=== PATIENT | female | born 1990 | race Hispanic/Latino ===

== ENCOUNTER 2023-11-10 08:27 | Inpatient (IN) | payer BC ==
[~2023-11-10] VITALS: Ht 157.5 cm; Wt 95.3 kg
[~2023-11-10 08:27] MED LIST: IBUP-2077 PO; PREN-226 PO
[2023-11-10 09:21] LABS: APPEARANCE,URINE CLEAR (CLEAR); BILIRUBIN,URINE NEGATIVE (NEGATIVE); COLOR,URINE COLORLESS (YELLOW); GLUCOSE, URINE (UA) NEGATIVE (NEGATIVE); KETONES,URINE NEGATIVE (NEGATIVE); LEUKOCYTE ESTERASE ,URINE NEGATIVE Leu/uL (NEGATIVE); NITRATE,URINE NEGATIVE (NEGATIVE); OCCULT BLOOD,URINE NEGATIVE (NEGATIVE); PROTEIN,URINE NEGATIVE (NEGATIVE); UROBILINOGEN,URINE 0.2 mg/dL (0.2-1.0)
[2023-11-10 09:21] LABS: HEMATOCRIT 38.3 % (36-48); MEAN CORPUSCULAR HEMOGLOBIN 26.4 pg (27.0-33.0); MEAN CORPUSCULAR HGB CONC 31.9 g/dL (32.0-36.0); MEAN CORPUSCULAR VOLUME 82.9 fL (79-99); RED BLOOD CELL COUNT(AUTO) 4.62 MIL/uL (4.00-5.50); RED CELL DISTRIBUTION WIDTH 15.9 % (11.0-15.5); WHITE BLOOD COUNT (AUTO) 9.6 K/uL (4.8-10.8)
[2023-11-10 09:22] LABS: ADD UA MICROSCOPIC NO
[2023-11-10] MEDS ORDERED: OXYTOCIN-LR 30 UNITS/500ML 500 ML IV SCH (09:30)
[2023-11-10 13:03] LABS: HIV 1&2 ANTIBODY Non-Reactive (Negative); HIV-1 p24 Antigen Non-Reactive (Negative)
[2023-11-10] MEDS: LACTATED RINGERS 1000ML 1,000 ML IV PRN (21:13)
[2023-11-10] MEDS: AMPICILLIN 2GM+NS 100ML 100 ML IV SCH (21:14)
[2023-11-11] MEDS: OXYTOCIN-LR 30 UNITS/500ML 500 ML IV SCH ×2 (01:34→11:06)
[2023-11-11] MEDS ORDERED: LACTATED RINGERS 500 ML 500 ML IV PRN (03:00)
[2023-11-11] MEDS ORDERED: ROPIVACAINE 0.2% 2MG/ML 100ML VIAL EP SCH (03:00)
[2023-11-11] MEDS ORDERED: EPHEDRINE SULFATE 50 MG/ML AMPULE IVP PRN (03:00)
[2023-11-11] MEDS ORDERED: NALOXONE HCL 0.4 MG/1 ML ML IV PRN (03:00)
[2023-11-11] MEDS: AMPICILLIN 1GM+NS 50ML 50 ML IV SCH (03:13)
[2023-11-11] MEDS ORDERED: PROMETHAZINE HCL 25 MG/ML 1ML AMPULE IM PRN (03:30)
[2023-11-11] MEDS ORDERED: MEPERIDINE-PF 50 MG/ML SYG IVP PRN (03:30)
[2023-11-11] MEDS ORDERED: LIDOCAINE HCL 1% 20 ML VIAL ONE (07:04)
[2023-11-11] MEDS ORDERED: ACETAMINOPHEN WITH CODEINE 1 TAB TAB PO PRN (10:00)
[2023-11-11] MEDS ORDERED: ACETAMINOPHEN 325 MG TAB PO PRN (10:00)
[2023-11-11 16:00] VITALS: BP 125/60; PULSE 101; RESP 18
[2023-11-11] MEDS: LANOLIN 30GM OINTMENT TP PRN (16:29)
[2023-11-11] MEDS: BENZOCAINE/LANOLIN/ALOE VERA 60 ML AEROSOL TP PRN (16:29)
[2023-11-11] MEDS: WITCH HAZEL 1 PAD TP PRN (16:29)
[2023-11-11] MEDS: IBUPROFEN 600 MG TABLET PO PRN (16:30)
[2023-11-11 20:16] VITALS: BP 124/78; PULSE 98; RESP 18
[2023-11-11] MEDS: DOCUSATE SODIUM 100 MG CAP PO SCH (21:25)
[2023-11-11 23:43] VITALS: BP 112/69; PULSE 86; RESP 18
[2023-11-12 04:00] VITALS: BP 106/57; PULSE 86; RESP 18
[2023-11-12 06:59] LABS: HEMATOCRIT 31.5 % (36-48); MEAN CORPUSCULAR HEMOGLOBIN 26.5 pg (27.0-33.0); MEAN CORPUSCULAR HGB CONC 31.7 g/dL (32.0-36.0); MEAN CORPUSCULAR VOLUME 83.6 fL (79-99); RED BLOOD CELL COUNT(AUTO) 3.77 MIL/uL (4.00-5.50); RED CELL DISTRIBUTION WIDTH 16.1 % (11.0-15.5); WHITE BLOOD COUNT (AUTO) 10.9 K/uL (4.8-10.8)
[2023-11-12 07:15] VITALS: BP 122/71; PULSE 85; RESP 18
[2023-11-12] MEDS: DIPH,PERTUSS(ACELL),TET VAC/PF 0.5 ML VIAL IM PRN (08:53)
[2023-11-12] MEDS ORDERED: CHOL100040 PO (09:42)
[2023-11-12] MEDS ORDERED: NPH,100V11 SQ (09:42)
[2023-11-12] MEDS ORDERED: INSREG SQ (09:42)
[2023-11-12] MEDS ORDERED: PREN-226 PO (09:42)
[2023-11-12] MEDS ORDERED: AEC81 PO (09:42)
[2023-11-12] MEDS ORDERED: IBUP-2070 PO (10:25)
[2023-11-12 11:43] VITALS: PULSE 78; RESP 18
[2023-11-12 14:26] LABS: RAPID PLASMA REAGIN NONREACTIVE (NONREACTIVE)
== END 2023-11-12 12:55 | disposition home or self-care (01) | DRG 805 ==
LOC: EDH 08:27 → LDH 08:28 → OBSVTOIN 08:28
PROVIDERS: ADMIT Obstetrics & Gynecology; ATTEND Obstetrics & Gynecology
PROC: 10E0XZZ Delivery of Products of Conception, External Approach (ICD-10-PCS; principal; 2023-11-11)
PROC: 0HQ9XZZ Repair Perineum Skin, External Approach (ICD-10-PCS; 2023-11-11)
PROC: 3E0R3BZ Introduction of Anesthetic Agent into Spinal Canal, Percutaneous Approach (ICD-10-PCS; 2023-11-11)
PROC: 00HU33Z Insertion of Infusion Device into Spinal Canal, Percutaneous Approach (ICD-10-PCS; 2023-11-11)
DX: O42.92 Full-term premature rupture of membranes, unspecified as to length of time between rupture and onset of labor (principal); O24.12 Pre-existing type 2 diabetes mellitus, in childbirth; Z37.0 Single live birth; O70.0 First degree perineal laceration during delivery; Z3A.38 38 weeks gestation of pregnancy; Z79.4 Long term (current) use of insulin
CPT/HCPCS: 36415; 81003; 82947; 82948; 85027; 86592; 86701; 86850; 86900; 86901; 87340; 87390; A4314; G0378; J0290; J2795; J7120